=== PATIENT | male | born 1955 | race Caucasian/White ===

== ENCOUNTER 2019-11-30 08:54 | Outpatient (CLI) | payer MEDICARE, MEDICAID, SELFPAY ==
--- NOTE | 2019-11-30 09:15 | XR_ITS ---
WS: [id number] KUB, 11/30/2019 Clinical Data: renal calculus Comparison: KUB, 09/28/2019. Findings: No abnormal intraabdominal masses or calcifications are seen. There is no dilatated small bowel or ev idence of obstruction. There are surgical sutures in the true pelvis. No renal or ureteral calculi are seen. The right urete ral stent has been removed. There is a large amount of fecal material throughout the colon. XR/XR KUB [id number] Impression: 1. Removal of right ureteral stent. 2. No definite renal or ureteral calculi are seen.
== END 2019-11-30 08:55 | disposition home or self-care (01) ==
LOC: RAD 09:00
PROVIDERS: Family Provider Nurse Practitioner Adult Health; PCP Nurse Practitioner Family; Visit Provider Urology
DX: N20.0 Calculus of kidney (principal)
CPT/HCPCS: 74018; 81001

== ENCOUNTER 2020-03-20 09:51 | Day surgery (SDC) | payer MEDICARE, MEDICAID, SELFPAY ==
[2020-03-18 09:39] VITALS: BMI 22.9
[2020-03-20 10:53] LABS: Glucose Point of Care 163 mg/dL (70-110)
[2020-03-20] MEDS: sodium chloride 0.9% 1,000 ML 30 ML IV (11:34)
--- NOTE | 2020-03-20 11:51 | ANES.PREANE2 ---
Pre-Anesthetic Assessment Pre-Anesthetic Assessment: Height/Weight: Height 1.78 m Weight 72.575 kg Preop Diagnosis: History of colon polyp Proposed Procedure: Operation Date: 03/20/20 11:00 Proposed Procedures p Colonoscopy 64715 Z86.010(Not Applicable) - Raymond Lynne MD Last intake: Intake Last Liquid Date 03/19/20 Last Liquid Time 20:00 Last Solid Date 03/19/20 Last Solid Time 20:00 Social: Social History: No alcohol and No tobacco Exam: Pre-Anes Outpt Exam: alert, oriented x 3, clear to auscultation bilaterally and regular rate & rhythm Airway: Submandibular: WNL Cervical ROM: WNL MP: 2 Dentition: Other (poor dentation) History/ROS: No significant history except as noted Pulmonary: Pulmonary: None reported CV/HEM: CV/HEM: None reported : Comments: stones Hepatic: Hepatic: None reported GI: GI: None reported Metabolic: Metabolic: DM Musc/skel: Musc/skel: None reported Neuropsych: Neuropsych: None reported Anesthetic Plan: ASA status: 2 Anesthesia: Anesthesia Evaluation and MAC Risk of > 500 ml blood loss (7ml/kg in children): No Meds/Allergies Current Medications: Current Medications Generic Name Dose Route Start Last Admin Trade Name Freq PRN Reason Stop Dose Admin Sodium Chloride 1,000 mls @ 30 ml s/hr 03/20/20 10:00 03/20/20 11:34 Sodium Chloride 0.9% IV 03/21/20 09:59 30 mls/hr .Q24H NICOLÁS Administration PFSH Anesthesia PFSH: Medical History Renal calculus, right Status post extracorporeal shock wave therapy Surgical History H/O umbilical hernia repair History of appendectomy History of colonoscopy with polypectomy (~1989) Hx of tonsillectomy Family History Father , at age 68 Myocardial infarction acute Mother , at age 88 Dementia Denies family history of Anesthesia complication Bleeding disorder Social History Smoking and tobacco status: never smoked Alcohol intake: never Adopted: No Caregiver/support person: No Marital status: Current occupational status: retired History of recent travel: No Current gender identity: Male Data Anesthesia Other Labs: Laboratory Results - last 48 hr 03/20/20 10:50 POC Glucose 163 Cardiac Studies: No Data to Display
--- NOTE | 2020-03-20 12:08 | W.PM.OPSUD ---
Surgery/Procedure H&P Update DATE OF PROCEDURE: March 20, 2020 DATE H&P PERFORMED: 02/28/20 H&P UPDATE INFORMATION: I have reviewed H&P completed within last 30 days, I have examined patient prior to procedure and No changes to prior documentation PREOP DIAGNOSIS: History of colon polyp PRIMARY INDICATION FOR PROCEDURE: The same PLANNED PROCEDURE: Operation Date: 03/20/20 11:00 Proposed Procedures p Colonoscopy 36959 Z86.010(Not Applicable) - Raymond Lynne MD
[2020-03-20 12:35] VITALS: BP 104/66; PULSE 73; RESP 16; TEMP 36.5; O2SAT 100
--- NOTE | 2020-03-20 12:36 | ANE.PACU2 ---
Inpatient post-anesthesia follow up: Airway intact: Yes Vital signs: Temperature 97.7 F Pulse Rate 73 Respiratory Rate 16 Blood Pressure 104/66 Pulse Oximetry 100 Oxygen Delivery Me thod Nasal Cannula Oxygen Flow Rate 3.0 Fraction of Inspir ed Oxygen Hydration adequate: Yes Nausea and vomiting: No Pain level: 1 Mental status: Baseline
[2020-03-20 12:51] VITALS: BP 135/78; PULSE 76; RESP 20; O2SAT 100
== END 2020-03-20 13:05 | disposition home or self-care (01) ==
PROVIDERS: Family Provider Nurse Practitioner Adult Health; PCP Nurse Practitioner Family; Visit Provider Surgery
PROC: 0DJD8ZZ Inspection of Lower Intestinal Tract, Via Natural or Artificial Opening Endoscopic (ICD-10-PCS; CPT 45378; principal; 2020-03-20 11:00)
DX: K57.30 Diverticulosis of large intestine without perforation or abscess without bleeding (principal); Z86.010 Personal history of colon polyps; E11.9 Type 2 diabetes mellitus without complications; Z79.84 Long term (current) use of oral hypoglycemic drugs
CPT/HCPCS: 12345; 36416; 45378; 82962; J2704; J7030

== ENCOUNTER 2020-11-25 09:07 | Outpatient (CLI) | payer MEDICARE, MEDICAID, SELFPAY ==
--- NOTE | 2020-11-25 09:00 | XR_ITS ---
WS: [id number] Exam: XR KUB [id number] Date/Time of Exam: 11/25/2020 9:00 AM Reason For Exam: Stones Comparison 11/30/2019. No bowel obstruction or free air. No abnormal abdominal calcifications seen. Numerous surgical clips noted in the lower abdomen and pelvis. Moderate amount retained stool throughout the colon. Visualize d organ margins are intact. XR/XR KUB [id number] IMPRESSION: 1. No acute abdominal finding. No obvious abnormal abdominal calcifications.
== END 2020-11-25 09:08 | disposition home or self-care (01) ==
LOC: RAD 09:12
PROVIDERS: PCP Nurse Practitioner Family; Visit Provider Urology
DX: N20.0 Calculus of kidney (principal)
CPT/HCPCS: 74018; 81003

== ENCOUNTER 2021-11-24 12:45 | Outpatient (CLI) | payer MEDICARE, MEDICAID, SELFPAY ==
--- NOTE | 2021-11-24 12:58 | XR_ITS ---
WS: [id number] Exam: XR KUB [id number] Date/Time of Exam: 11/24/2021 1:12 PM Reason For Exam: stones No bowel obstruction or free air. No sign of organ enlargement. Moderate amount retained stool in the colon. Numerous surgical clips in the right left pelvis. No obvious calcifications are noted in the region of the kidneys. XR/XR KUB [id number] IMPRESSION: 1. No acute abdominal process.
== END 2021-11-24 12:46 | disposition home or self-care (01) ==
LOC: RAD 12:50
PROVIDERS: PCP Nurse Practitioner Family; Visit Provider Urology
DX: N20.0 Calculus of kidney (principal)
CPT/HCPCS: 74018; 81003